=== PATIENT | male | born 1950 | race Caucasian/White ===

== ENCOUNTER → 2021-11-07 | Day surgery (SDC) | payer MEDICARE, OTHER ==
[~2021-11-07] VITALS: Ht 177.8 cm; Wt 87.5 kg
[~2021-11-07] MED LIST: CENTRUM SILVER1 EAC5 PO; CYMBALTA60 MG PO
== END | disposition home or self-care (01) ==
LOC: FAS 05:59
DX: Z12.11 Encounter for screening for malignant neoplasm of colon (principal); K64.9 Unspecified hemorrhoids; K29.50 Unspecified chronic gastritis without bleeding; B96.81 Helicobacter pylori [H. pylori] as the cause of diseases classified elsewhere; K21.00 Gastro-esophageal reflux disease with esophagitis, without bleeding; D12.3 Benign neoplasm of transverse colon; K22.2 Esophageal obstruction; Z86.010 Personal history of colon polyps; Z88.6 Allergy status to analgesic agent; Z72.0 Tobacco use
CPT/HCPCS: J2250; J2704; J7120